=== PATIENT | female | born 1965 | race Hispanic/Latino ===

== ENCOUNTER 2023-10-22 06:11 | Day surgery (SDC) | payer BC ==
[2023-10-20 12:06] LABS: BASOPHILS # (AUTO) 0.07 K/uL (0.00-0.20); BASOPHILS % (AUTO) 0.8 % (0.0-5.0); EOSINOPHILS # (AUTO) 0.26 K/uL (0.00-0.70); HEMATOCRIT 41.1 % (36-48); IMMATURE GRANULOCYTE ABSOLUTE 0.03 K/uL (0-1); LYMPHOCYTES # (AUTO) 2.8 K/uL (1.0-4.8); LYMPHOCYTES % (AUTO) 31.7 % (21.0-51.0); MEAN CORPUSCULAR HEMOGLOBIN 29.7 pg (27.0-33.0); MEAN CORPUSCULAR HGB CONC 32.4 g/dL (32.0-36.0); MEAN CORPUSCULAR VOLUME 91.7 fL (79-99); MONOCYTES # (AUTO) 0.5 K/uL (0.1-1.0); MONOCYTES % (AUTO) 5.7 % (3.0-13.0); NEUTROPHILS # (AUTO) 5.1 K/uL (1.8-7.7); NEUTROPHILS % (AUTO) 58.5 % (40.0-77.0); PLATELET COUNT (AUTO) 356 K/uL (130-400); RED BLOOD CELL COUNT(AUTO) 4.48 MIL/uL (4.00-5.50); RED CELL DISTRIBUTION WIDTH 13.1 % (11.0-15.5); WHITE BLOOD COUNT (AUTO) 8.8 K/uL (4.8-10.8)
[2023-10-20 12:17] LABS: CREATININE 0.8 mg/dL (0.5-1.0); POTASSIUM 3.6 mmol/L (3.5-5.1)
[2023-10-20 12:40] VITALS: BP 180/91; PULSE 60; RESP 16
[2023-10-22] VITALS (17 sets, daily range): BP systolic 125–160; BP diastolic 67–83; PULSE 60–71; RESP 11–18
[~2023-10-22] VITALS: Ht 167.6 cm; Wt 106.9 kg
[~2023-10-22 06:11] MED LIST: DICY10 PO; LEVO-70 PO; LEVO100T4 PO; LOSA50TA64 PO; OMEP40CA21 PO; ONDA-243 PO
[2023-10-22] MEDS: CEFAZOLIN SODIUM 2 GM VIAL ONE (07:18)
[2023-10-22] MEDS: METRONIDAZOLE 500MG/100ML BAG 0 ML ONE (07:18)
[2023-10-22] MEDS: LACTATED RINGERS 1000ML 1,000 ML IV ONE (07:19)
[2023-10-22] MEDS ORDERED: LIDOCAINE PF 100MG/5ML (2%) SYRINGE 5ML ONE (07:22)
[2023-10-22] MEDS ORDERED: DEXAMETHASONE SOD PHOSPHATE 4 MG/ML 1ML VIAL ONE (07:22)
[2023-10-22] MEDS ORDERED: PROPOFOL 10 MG/ML 20ML VIAL IV ONE (07:23)
[2023-10-22] MEDS ORDERED: ONDANSETRON 4MG INJ ONE (07:23)
[2023-10-22] MEDS ORDERED: SUCCINYLCHOLINE CHLORIDE 20 MG/ML 10 ML VIAL ONE (07:24)
[2023-10-22] MEDS ORDERED: MIDAZOLAM HCL 1 MG/ML 2ML VIAL ONE (07:24)
[2023-10-22] MEDS ORDERED: ROCURONIUM BROMIDE 10MG/1ML 5ML VL ONE (07:24)
[2023-10-22] MEDS ORDERED: FENTANYL CITRATE PF 50 MCG/1 ML 2ML VIAL ONE ×2 (07:24→08:41)
[2023-10-22] MEDS ORDERED: NEOSTIGMINE METHYLSULFATE 1MG/ML IV ONE (07:27)
[2023-10-22] MEDS ORDERED: GLYCOPYRROLATE 0.2 MG/ML 5 ML VIAL ONE (07:27)
[2023-10-22] MEDS ORDERED: PHENYLEPHRINE HCL 10 MG/ML 1ML VIAL IV ONE (07:27)
[2023-10-22] MEDS ORDERED: ROPIVACAINE 0.5% 5MG/ML 30ML ONE (07:32)
[2023-10-22] MEDS ORDERED: BUPIVACAINE/PF 0.25% 30ML VIAL IJ ONE (07:33)
[2023-10-22] MEDS: INDOCYANINE GREEN 25 MG VIAL IJ ONE (07:41)
[2023-10-22] MEDS: CEFAZOLIN SODIUM 2 GM VIAL IVPB ONE ×2 (08:07)
[2023-10-22] MEDS ORDERED: KETOROLAC 30MG VIAL (30MG/ML) ONE ×2 (08:44→09:48)
[2023-10-22] MEDS ORDERED: HYDRALAZINE 20MG/ML VIAL ONE (09:48)
[2023-10-22] MEDS: ACETAMINOPHEN 1,000 MG/100 ML VIAL IV ONE (10:55)
[2023-10-22] MEDS: MEPERIDINE-PF 25 MG/ML SYG ONE (10:55)
[2023-10-22] MEDS: ONDANSETRON 4MG INJ ONE (10:55)
== END 2023-10-22 12:15 | disposition home or self-care (01) ==
LOC: DAH 06:11
PROVIDERS: ATTEND Surgery
DX: K80.00 Calculus of gallbladder with acute cholecystitis without obstruction (principal); I10 Essential (primary) hypertension; K21.9 Gastro-esophageal reflux disease without esophagitis; K31.84 Gastroparesis; E03.9 Hypothyroidism, unspecified; Z85.3 Personal history of malignant neoplasm of breast; Z90.710 Acquired absence of both cervix and uterus; Z79.899 Other long term (current) drug therapy
CPT/HCPCS: 80048; 85025; 86850; 86900; 86901; 36415; 93005; 64488; 47563; 88304; A6260; S2900; J1100; A4600; A4663; J7030; A4215 ×2; J7120; J3010 ×2; J0330; J0665 ×2; J3490 ×2; J2001; J0360; J2250; J2704; J2405 ×2; J1885 ×2; J2710; J2175; J2795; J2371; J0690 ×2; G0168; A4223; A4222; A4221